=== PATIENT | female | born 1985 | race Two or more races ===

== ENCOUNTER 2016-06-09 06:49 | Emergency (ER) | payer MEDICAID ==
[2016-06-09 08:29] LABS: ABSOLUTE BASOPHILS # (AUTO) 0.1 10^3/uL (0.0-0.2); ABSOLUTE EOSINOPHILS # (AUTO) 0.3 10^3/uL (0.0-0.6); ABSOLUTE LYMPHOCYTES (AUTO) 2.2 10^3/uL (0.5-4.7); ABSOLUTE MONOCYTES (AUTO) 0.6 10^3/uL (0.1-1.4); ABSOLUTE NEUT (AUTO) 6.7 10^3/uL (1.7-8.2); BASOPHILS % (AUTO) 0.6 % (0-2); EOSINOPHILS % (AUTO) 2.6 % (0-6); HEMATOCRIT 40.8 % (36.0-47.0); HEMOGLOBIN 13.3 g/dL (12.0-15.5); HGB HCT DIFFERENCE -0.9; LYMPHOCYTES % (AUTO) 22.7 % (13-45); MEAN CORPUSCULAR HEMOGLOBIN 27.5 pg (27.0-33.4); MEAN CORPUSCULAR HGB CONC 32.6 g/dL (32.0-36.0); MEAN CORPUSCULAR VOLUME 84 fl (80-97); MONOCYTES % (AUTO) 5.7 % (3-13); RED BLOOD COUNT 4.84 10^6/uL (3.72-5.28); RED CELL DISTRIBUTION WIDTH 14.4 % (11.5-14.0); SEGMENTED NEUTROPHILS % (AUTO) 68.4 % (42-78); WHITE BLOOD COUNT 9.8 10^3/uL (4.0-10.5)
[2016-06-09 08:52] LABS: ALANINE AMINOTRANSFERASE 37 U/L (9-52); ALBUMIN 4.6 g/dL (3.5-5.0); ALKALINE PHOSPHATASE 77 U/L (38-126); ANION GAP 14 (5-19); ASPARTATE AMINO TRANSFERASE 21 U/L (14-36); BILIRUBIN,DIRECT 0.1 mg/dL (0.0-0.4); BILIRUBIN,TOTAL 0.3 mg/dL (0.2-1.3); BLOOD UREA NITROGEN 10 mg/dL (7-20); CALCIUM 9.7 mg/dL (8.4-10.2); CARBON DIOXIDE 24 mmol/L (22-30); CHLORIDE 105 mmol/L (98-107); GLUCOSE 94 mg/dL (75-110); POTASSIUM 4.6 mmol/L (3.6-5.0); SODIUM 142.9 mmol/L (137-145); TOTAL PROTEIN 7.7 g/dL (6.3-8.2)
[2016-06-09] MEDS ORDERED: MORPHINE SULFATE 10 MG/ML INJ IV ONE (10:44)
[2016-06-09 10:46] LABS: APPEARANCE,URINE CLEAR; BILIRUBIN,URINE NEGATIVE (NEGATIVE); GLUCOSE, URINE NEGATIVE (NEGATIVE); KETONES,URINE NEGATIVE (NEGATIVE); LEUKOCYTE ESTERASE,URINE NEGATIVE (NEGATIVE); NITRITE,URINE NEGATIVE (NEGATIVE); PROTEIN,URINE NEGATIVE (NEGATIVE); URINE SPECIFIC GRAVITY 1.044; UROBILINOGEN,URINE NEGATIVE mg/dL (<2.0)
--- NOTE | 2016-06-09 12:52 | ER Document Report ---
ED GI/ - General Chief Complaint: Cyst Stated Complaint: BACK PAIN AND LEG NUMBNESS Notes: Patient is a 30 year old female who presents to the ED complaining of pelvic/ rectal pain since Friday. She states it is a dull, constant ache that has prohibited her ability to get comfortable. She states it feels better to stand then to sit. She denies any fever, chills, abdominal pain, n/v/d/c. Last BM was this AM and was normal, she typically goes daily or every other day. She admits that she is concerned it is her pilonidal cyst which she was supposed to have operated on March 2016 but couldnt get time off work. She state she had it drained previously in [place] [facility] office and has been following with them. She has been taking motrin for pain which helps, 200mg BID PRN PMH: as above LMP: currently on it TRAVEL OUTSIDE OF THE [place] IN LAST 30 DAYS: No - Related Data Allergies/Adverse Reactions: aspirin [Aspirin] Allergy (Severe, Verified 06/09/16 06:53) heart burn/throat swelling nickel [Nickel] Allergy (Severe, Verified 06/09/16 06:53) rash/hives red dye [Red Dye] Allergy (Severe, Verified 06/09/16 06:53) heart burn/throat swelling dogs Allergy (Severe, Uncoded 05/09/15 13:07) Anaphylaxis mold Allergy (Severe, Uncoded 05/09/15 13:07) Anaphylaxis aersol Allergy (Intermediate, Uncoded 05/09/15 13:07) Hives flu vaccine Allergy (Unknown, Uncoded 05/09/15 13:07) resulted on allergy skin test Past Medical History - Social History Smoking Status: Never Smoker Chew tobacco use (# tins/day): No Frequency of alcohol use: None Drug Abuse: None Family History: Reviewed & Not Pertinent - Past Medical History Cardiac Medical History: Denies: Hx Heart Attack, Hx Hypertension Pulmonary Medical History: Reports: Hx Asthma Denies: Hx Bronchitis, Hx COPD, Hx Pneumonia Neurological Medical History: Denies: Hx Cerebrovascular Accident, Hx Seizures Renal/ Medical History: Reports: Hx Ovarian Cysts. Denies: Hx Peritoneal Dialysis GI Medical History: Denies: Hx Hepatitis, Hx Hiatal Hernia, Hx Ulcer Musculoskeltal Medical History: Denies Hx Arthritis, Reports Hx Musculoskeletal Trauma Psychiatric Medical History: Reports: Hx Anxiety, Hx Depression Traumatic Medical History: Reports: Hx Fractures Infectious Medical History: Denies: Hx Hepatitis Past Surgical History: Reports: Hx Abdominal Surgery, Hx Section, Hx Orthopedic Surgery - L ankle. Denies: Hx Hysterectomy, Hx Mastectomy, Hx Open Heart Surgery, Hx Pacemaker - Immunizations Immunizations up to date: Yes Hx Diphtheria, Pertussis, Tetanus Vaccination: Yes Review of Systems - Review of Systems Constitutional: No symptoms reported Gastrointestinal: See HPI Genitourinary: See HPI -: Yes All other systems reviewed and negative Physical Exam - Vital signs Vitals: Temp Pulse Resp BP Pulse Ox 97.9 F 92 20 147/84 H 100 06/09/16 06:53 06/09/16 06:53 06/09/16 06:53 06/09/16 06:53 06/09/16 06:53 - Notes Notes: PHYSICAL EXAM GENERAL: Alert, interacts well. HEAD: Normocephalic, atraumatic. EYES: Pupils equal, round, and reactive to light. Extraocular movements intact. ENT: Oral mucosa moist, tongue midline. NECK: Full range of motion. Supple. Trachea midline. LUNGS: Clear to auscultation bilaterally, no wheezes, rales, or rhonchi. No respiratory distress. HEART: Regular rate and rhythm. No murmurs, gallops, or rubs. ABDOMEN: Soft, nondistended, nontender. No guarding, rebound, or rigidity.. Bowel sounds present in all 4 quadrants. FEMALE : Normal external exam. No evidence of lesions, lacerations, bruising or vesicles. Speculum exam normal cervix closed with bleeding. No evidence of vaginal discharge with odor. No evidence of lesions. No vaginal bleeding. Bimanual exam normal no cervical motion tenderness. No adnexal mass, right adnexal tenderness RECTAL: no evidence of abscess, nontender on digital exam, no evidence of bleeding EXTREMITIES: Moves all 4 extremities spontaneously. No edema, radial and dorsalis pedis pulses 2/4 bilaterally. No cyanosis. NEUROLOGICAL: Alert and oriented x4. Normal speech. PSYCH: Normal affect, normal mood. SKIN: Warm, dry, normal turgor. No rashes or lesions noted. Course - Re-evaluation Re-evalutation: 06/09/16 20:12 Patient is a 30-year-old female who is hemodynamically stable, no acute distress and afebrile. CT abdomen and pelvis reveals concern for rate appearing in to see us. On physical exam patient did have evidence of right adnexal tenderness. Transvaginal ultrasound reveals hemorrhagic cyst that is about 2.4 cm. Otherwise, ovaries bilaterally have good blood flow. Will discharge patient home with instruction to follow up with [facility] this week. - Vital Signs Vital signs: Temp Pulse Resp BP Pulse Ox 98.3 F 87 16 134/86 H 99 06/09/16 13:01 06/09/16 13:01 06/09/16 13:01 06/09/16 13:01 06/09/16 13:01 - Laboratory Result Diagrams: 06/09/16 08:15 06/09/16 08:15 Laboratory results interpreted by me: 06/09/16 06/09/16 08:15 10:32 RDW 14.4 H Urine Blood LARGE H - Diagnostic Test Radiology reviewed: Image reviewed, Reports reviewed Discharge - Discharge Clinical Impression: Ovarian cyst, Sciatica Condition: Good Disposition: HOME, SELF-CARE Instructions: Ovarian Cyst ([facility]), Sciatica ([facility]), Acetaminophen, Use of Over- The-Counter Ibuprofen ([facility]), Warm Packs ([facility]), Stretching Exercises for the Back ([facility]) Prescriptions: Ibuprofen [Motrin 800 mg Tablet] 800 mg PO Q8H PRN #30 tab PRN Reason: Forms: Elevated Blood Pressure, Return to Work Referrals: ANUJA LILLY [facility]PER[facility] [Primary Care Provider] - Follow up in 3-5 days
[2016-06-09 13:04] VITALS: BP 134/86
== END 2016-06-09 13:00 | disposition home or self-care (01) ==
LOC: ER 06:49
DX: N83.201 Unspecified ovarian cyst, right side (principal); M54.30 Sciatica, unspecified side; M54.9 Dorsalgia, unspecified; R10.2 Pelvic and perineal pain; J45.909 Unspecified asthma, uncomplicated
CPT/HCPCS: 99284; 96374; 36415; 84703; 85025; 80053; 81001; 76830; 93976; 74177; J2270

== ENCOUNTER 2017-03-01 21:14 | Emergency (ER) | payer MEDICAID ==
[2017-03-02] MEDS ORDERED: SULFAMETHOXAZOLE/TRIMETHOPRIM 800-160 MG TABLET PO ONE (00:27)
[2017-03-02] MEDS ORDERED: CEPHALEXIN 500 MG CAPSULE PO ONE (00:27)
[2017-03-02] MEDS ORDERED: HYDROCODONE/ACETAMINOPHEN 5-325 MG (6 TAB/ER DISP) PO PRN (00:28)
[2017-03-02] MEDS ORDERED: ENOXAPARIN SODIUM INJ 120 MG/0.8 ML DISP.SYRIN SUBCUT ONE (00:28)
--- NOTE | 2017-03-02 00:34 | ER Document Report ---
ED Extremity Problem, Lower - General Chief Complaint: Ankle Swelling Stated Complaint: ANKLE PAIN Time Seen by Provider: 03/02/17 00:07 Notes: Patient is a 31-year-old female who comes emergency department for chief complaint of developing redness and pain in her right leg, she states that about 2 days ago she felt a sharp pain in her leg like she "got stung by something", states that since then she has had developing redness and increasing pain. She also states that she has swelling in her leg, on both sides, states she swells frequently but complains of pain with walking. She denies injury to either leg. She states that she was told that she had a blood clot in the past and was placed on Eliquis but stopped taking the Eliquis because she was not sure she needed it. She denies any shortness of breath, chest pain. She denies any other medical history of this time. TRAVEL OUTSIDE OF THE [place] IN LAST 30 DAYS: No - Related Data Allergies/Adverse Reactions: aspirin [Aspirin] Allergy (Severe, Verified 06/09/16 06:53) heart burn/throat swelling nickel [Nickel] Allergy (Severe, Verified 06/09/16 06:53) rash/hives red dye [Red Dye] Allergy (Severe, Verified 06/09/16 06:53) heart burn/throat swelling dogs Allergy (Severe, Uncoded 05/09/15 13:07) Anaphylaxis mold Allergy (Severe, Uncoded 05/09/15 13:07) Anaphylaxis aersol Allergy (Intermediate, Uncoded 05/09/15 13:07) Hives flu vaccine Allergy (Unknown, Uncoded 05/09/15 13:07) resulted on allergy skin test Past Medical History - General Information source: Patient - Social History Smoking Status: Never Smoker Frequency of alcohol use: None Drug Abuse: None Lives with: Family Family History: Reviewed & Not Pertinent - Past Medical History Cardiac Medical History: Denies: Hx Heart Attack, Hx Hypertension Pulmonary Medical History: Reports: Hx Asthma Denies: Hx Bronchitis, Hx COPD, Hx Pneumonia Neurological Medical History: Denies: Hx Cerebrovascular Accident, Hx Seizures Renal/ Medical History: Reports: Hx Ovarian Cysts. Denies: Hx Peritoneal Dialysis GI Medical History: Denies: Hx Hepatitis, Hx Hiatal Hernia, Hx Ulcer Musculoskeltal Medical History: Denies Hx Arthritis, Reports Hx Musculoskeletal Trauma Psychiatric Medical History: Reports: Hx Anxiety, Hx Depression Traumatic Medical History: Reports: Hx Fractures Infectious Medical History: Denies: Hx Hepatitis Past Surgical History: Reports: Hx Abdominal Surgery, Hx Section, Hx Orthopedic Surgery - L ankle. Denies: Hx Hysterectomy, Hx Mastectomy, Hx Open Heart Surgery, Hx Pacemaker - Immunizations Immunizations up to date: Yes Hx Diphtheria, Pertussis, Tetanus Vaccination: Yes Review of Systems - Review of Systems Constitutional: No symptoms reported EENT: No symptoms reported Cardiovascular: No symptoms reported Respiratory: No symptoms reported Gastrointestinal: No symptoms reported Genitourinary: No symptoms reported Female Genitourinary: No symptoms reported Musculoskeletal: See HPI Skin: See HPI Hematologic/Lymphatic: No symptoms reported Neurological/Psychological: No symptoms reported Physical Exam - Vital signs Vitals: Temp Pulse Resp BP Pulse Ox 98.0 F 85 20 124/89 H 99 03/01/17 21:26 03/01/17 21:26 03/01/17 21:26 03/01/17 21:26 03/01/17 21:26 Interpretation: Normal - General General appearance: Appears well, Alert In distress: None - HEENT Head: Normocephalic, Atraumatic Eyes: Normal Conjunctiva: Normal Extraocular movements intact: Yes Eyelashes: Normal Pupils: PERRL Mouth/Lips: Normal Mucous membranes: Normal Pharynx: Normal Neck: Normal - Respiratory Respiratory status: No respiratory distress Chest status: Nontender Breath sounds: Normal. No: Decreased air movement, Wheezing Chest palpation: Normal - Cardiovascular Rhythm: Regular. No: Tachycardia Heart sounds: Normal auscultation, S1 appreciated, S2 appreciated Murmur: No - Abdominal Inspection: Normal Distension: No distension Bowel sounds: Normal Tenderness: Nontender. No: Tender, Guarding - Back Back: Normal, Nontender. No: Tender - Extremities General upper extremity: Normal inspection, Nontender, Normal strength, Normal temperature General lower extremity: Other - There is mild edema of both distal tibial areas and ankles. Over the right distal tibial area there is a general area of erythema and warmth with increased tenderness. No induration or fluctuance, no streaking away from the site, normal ankle, knee, hip exam. Normal distal neurovascular exam. - Neurological Neuro grossly intact: Yes Cognition: Normal Orientation: AAOx4 [place] Coma Scale Eye Opening: Spontaneous [place] Coma Scale Verbal: Oriented [place] Coma Scale Motor: Obeys Commands Trudy Coma Scale Total: 15 Speech: Normal Motor strength normal: LUE, RUE, LLE, RLE Sensory: Normal - Psychological Associated symptoms: Normal affect, Normal mood - Skin Skin Temperature: Warm Skin Moisture: Dry Skin Color: Normal Course - Re-evaluation Re-evalutation: Patient is difficult to get any history out of, has to be redirected, is vague and does not give any specific details without repeatedly asking. Examination does show erythema and warmth suggesting cellulitis in the right lower extremity above the ankle in the distal tibial area mainly anteriorly. There is mild edema in both legs. No fever, patient is well-appearing, denies history of diabetes, no obvious wounds. No evidence of septic joint. No evidence of necrotizing fasciitis. Mild pain over the area, no pain out of proportion or crepitus. No induration or fluctuance. Treating patient for suspected cellulitis, because she is reportedly off her blood thinner and thinks she had a blood clot in the past she will be scheduled for an ultrasound in morning and given a dose of Lovenox now pending additional workup. Discussed return precautions in between now and then. Patient states satisfaction and agreement with plan and states that she will definitely perform this. - Vital Signs Vital signs: Temp Pulse Resp BP Pulse Ox 97.1 F 79 20 115/54 L 100 03/02/17 01:17 03/02/17 01:17 03/02/17 01:17 03/02/17 01:17 03/02/17 01:17 Discharge - Discharge Clinical Impression: Leg swelling Cellulitis of extremity Qualifiers: Site of cellulitis of extremity: lower extremity Laterality: right Qualified Code(s): L03.115 - Cellulitis of right lower limb Condition: Stable Disposition: HOME, SELF-CARE Additional Instructions: Your examination is consistent with cellulitis of the right lower extremity. Because you are reportedly off the blood thinner with lower extremity swelling there is some concern that he may have a blood clot in your lower extremity as well. Please return in the morning to have the Doppler ultrasound performed with the prescription given tonight. You have been given a dose of Lovenox blood thinner in preparation for this to be performed. Also take the antibiotics as prescribed for the cellulitis. Elevate your legs. Return to emergency department sooner if you develop fever 100.4 or greater, you have spreading redness, no shortness of breath, chest pain, or any other concerning symptoms. Prescriptions: Cephalexin Monohydrate [Keflex 500 mg Capsule] 500 mg PO QID #28 capsule Sulfamethoxazole/Trimethoprim [Bactrim Ds Tablet] 1 each PO BID #14 tablet Forms: Follow-Up Outpatient Testing
[2017-03-02 01:28] VITALS: BP 115/54
== END 2017-03-02 01:17 | disposition home or self-care (01) ==
LOC: ER 21:14
DX: L03.115 Cellulitis of right lower limb (principal); M25.471 Effusion, right ankle; Z88.6 Allergy status to analgesic agent; Z88.7 Allergy status to serum and vaccine
CPT/HCPCS: 99283; 96372; J1650; J3490

== ENCOUNTER 2019-03-22 19:55 | Emergency (ER) | payer MEDICAID ==
--- NOTE | 2019-03-22 20:27 | ER Document Report ---
ED Medical Screen (RME) - General Chief Complaint: Drug Abuse Stated Complaint: WITHDRAWAL,AMS Time Seen by Provider: 03/22/19 20:20 Mode of Arrival: Ambulatory Information source: Patient Notes: 33-year-old female patient to the emergency department with complaints of suicidal attempt. Patient reports she used heroin and Lesley earlier today in an attempt to end her life. Patient reports she has hopeless and has nothing left to live for. Patient reports longstanding history of mental illness, she does state that she is compliant with her medications. She does also state that she hears voices. Denies any homicidal ideations. Patient is very anxious and tearful in triage. I have greeted and performed a rapid initial assessment of this patient. A comprehensive ED assessment and evaluation of the patient, analysis of test results and completion of the medical decision making process will be conducted by additional ED providers. I have specifically instructed the patient or f amily members with the patient to immediately return to any nursing staff should anything change in the patient's condition or with their chief complaint. TRAVEL OUTSIDE OF THE [place] IN LAST 30 DAYS: No - Related Data Allergies/Adverse Reactions: aspirin [Aspirin] Allergy (Severe, Verified 03/22/19 20:15) heart burn/throat swelling nickel [Nickel] Allergy (Severe, Verified 03/22/19 20:15) rash/hives red dye [Red Dye] Allergy (Severe, Verified 03/22/19 20:15) heart burn/throat swelling dogs Allergy (Severe, Uncoded 05/09/15 13:07) Anaphylaxis mold Allergy (Severe, Uncoded 05/09/15 13:07) Anaphylaxis aersol Allergy (Intermediate, Uncoded 05/09/15 13:07) Hives flu vaccine Allergy (Unknown, Uncoded 05/09/15 13:07) resulted on allergy skin test Past Medical History - Social History Drug Abuse: Cocaine, Heroin, Marijuana, Methamphetamine, Prescription drugs - Past Medical History Cardiac Medical History: Denies: Hx Heart Attack, Hx Hypertension Pulmonary Medical History: Reports: Hx Asthma Denies: Hx Bronchitis, Hx COPD, Hx Pneumonia Neurological Medical History: Denies: Hx Cerebrovascular Accident, Hx Seizures Renal/ Medical History: Reports: Hx Ovarian Cysts. Denies: Hx Peritoneal Dialysis GI Medical History: Denies: Hx Hepatitis, Hx Hiatal Hernia, Hx Ulcer Musculoskeltal Medical History: Denies Hx Arthritis, Reports Hx Musculoskeletal Trauma Psychiatric Medical History: Reports: Hx Anxiety, Hx Depression Traumatic Medical History: Reports: Hx Fractures Infectious Medical History: Denies: Hx Hepatitis Past Surgical History: Reports: Hx Abdominal Surgery, Hx Section, Hx Orthopedic Surgery - L ankle. Denies: Hx Hysterectomy, Hx Mastectomy, Hx Open Heart Surgery, Hx Pacemaker - Immunizations Immunizations up to date: Yes Hx Diphtheria, Pertussis, Tetanus Vaccination: Yes
[2019-03-22 21:23] LABS: ABSOLUTE BASOPHILS # (AUTO) 0.1 10^3/uL (0.0-0.2); ABSOLUTE EOSINOPHILS # (AUTO) 0.3 10^3/uL (0.0-0.6); ABSOLUTE LYMPHOCYTES (AUTO) 4.1 10^3/uL (0.5-4.7); ABSOLUTE MONOCYTES (AUTO) 0.7 10^3/uL (0.1-1.4); ABSOLUTE NEUT (AUTO) 3.4 10^3/uL (1.7-8.2); BASOPHILS % (AUTO) 0.6 % (0-2); EOSINOPHILS % (AUTO) 3.7 % (0-6); HEMOGLOBIN 12.2 g/dL (12.0-15.5); LYMPHOCYTES % (AUTO) 47.7 % (13-45); MEAN CORPUSCULAR HEMOGLOBIN 27.5 pg (27.0-33.4); MEAN CORPUSCULAR HGB CONC 33.9 g/dL (32.0-36.0); MEAN CORPUSCULAR VOLUME 81 fl (80-97); MONOCYTES % (AUTO) 8.1 % (3-13); PLATELET COUNT 334 10^3/uL (150-450); RED BLOOD COUNT 4.45 10^6/uL (3.72-5.28); RED CELL DISTRIBUTION WIDTH 16.4 % (11.5-14.0); SEGMENTED NEUTROPHILS % (AUTO) 39.9 % (42-78); TOTAL CELLS COUNTED % (AUTO) 100 %; WHITE BLOOD COUNT 8.6 10^3/uL (4.0-10.5)
[2019-03-22 21:28] LABS: APPEARANCE,URINE CLEAR; BILIRUBIN,URINE NEGATIVE (NEGATIVE); COLOR,URINE YELLOW; GLUCOSE, URINE NEGATIVE (NEGATIVE); KETONES,URINE NEGATIVE (NEGATIVE); LEUKOCYTE ESTERASE,URINE NEGATIVE (NEGATIVE); NITRITE,URINE NEGATIVE (NEGATIVE); PROTEIN,URINE 30 mg/dL (NEGATIVE); URINE SPECIFIC GRAVITY 1.031; UROBILINOGEN,URINE NEGATIVE mg/dL (<2.0)
[2019-03-22 21:39] LABS: ALBUMIN 4.6 g/dL (3.5-5.0); ALKALINE PHOSPHATASE 51 U/L (38-126); ANION GAP 11 (5-19); ASPARTATE AMINO TRANSFERASE 20 U/L (14-36); BILIRUBIN,DIRECT 0.2 mg/dL (0.0-0.4); BILIRUBIN,TOTAL 0.4 mg/dL (0.2-1.3); BLOOD UREA NITROGEN 14 mg/dL (7-20); CALCIUM 9.1 mg/dL (8.4-10.2); CARBON DIOXIDE 29 mmol/L (22-30); CHLORIDE 100 mmol/L (98-107); POTASSIUM 3.9 mmol/L (3.6-5.0); TOTAL PROTEIN 7.8 g/dL (6.3-8.2)
[2019-03-22 21:46] LABS: URINE BARBITURATES SCREEN NEGATIVE; URINE METHADONE SCREEN NEGATIVE; URINE PHENCYCLIDINE SCREEN NEGATIVE
[2019-03-22 21:49] LABS: ACETAMINOPHEN < 10 ug/mL (10-30); ALCOHOL < 10 mg/dL (NONE DETECTED); SALICYLATE < 1.0 mg/dL (2.0-20.0)
[2019-03-22 21:50] LABS: GLUCOSE 64 mg/dL (75-110); URINE BENZODIAZEPINES SCREEN UNCONFIRMED POSITIVE; URINE COCAINE SCREEN UNCONFIRMED POSITIVE
[2019-03-22 21:51] LABS: URINE MARIJUANA (THC) SCREEN UNCONFIRMED POSITIVE
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
--- NOTE | 2019-03-23 07:16 | EKG REPORT ---
SEVERITY:- NORMAL ECG - SINUS RHYTHM : Confirmed by: Dain Hale MD 23-Mar-2019 07:15:43
--- NOTE | 2019-03-23 10:26 | PSYCHOLOGICAL NOTE ---
Psych Note - Psych Note Date seen by psych provider: 03/23/19 Time seen by psych provider: 08:45 Psych Note: Patient is a 33-year-old female who presents to ED via POV accompanied by [facility] for polysubstance use and suicidal ideation. Patient states she called [facility] because she wanted to get help for her substance abuse. Patient states she has been using substances for approximately 5 months in an attempt to self medicate the "voices in my head." Patient states the substances usually "shuts them up." Patient reports detoxes her immediate need. Patient endorses SI, with no plan. Denies command auditory hallucinations. Patient states that she is seen by [facility] for medication management. Patient does not have a mental health provider for mental health services. Patient states she is prescribed Rexulti, lorazepam, and Adderall. Patient reports mental health diagnoses of major depression, schizophrenia, and borderline personality disorder. Patient reports a TBI. Patient identifies her father is a strong support system and has her children age 16 and 10. Patient's drug screen is positive for amphetamines/methamphetamines, benzos, cocaine, and marijuana. Patient was provided psychoeducation regarding substance use disorder. Patient was also provided psychoeducation regarding substance use and TBI. Patient spoke with Isabell at [facility] who secured a bed for patient at [facility] at 12:00. Patient was reminded that the referral to [facility] is a lengthy process and [facility] will be the point of contact for updates. Patient is alert and oriented to person, place, time and circumstance. Mood is normal with congruent affect. Patient endorses suicidal ideation with no plan. Patietn denies homicidal ideation. There is no observed behavior that suggests patient is responding to internal stimuli. Patient is able to engage in organized, rational thought processes. Patient is able to express needs and wants in a logical manner. Patient denies current auditory and visual hallucinations. Eye contact is appropriate. Intellectual ability appears to be within average range. Attention and concentration are good. Insight, judgment and impulse control are currently poor. Impression/Plan: Patient is cleared from acute psychiatric services. Patient endorses suicidal ideation with no plan. Patient denies homicidal ideations. There is no observed behavior that suggests patient is responding to internal stimuli. Patient engaged in organized, rational, linear thought processes and was able to express needs and wants in a logical manner. Patient was provided psychoeducation regarding amphetamines/methamphetamines, benzos, cocaine, and marijuana, and the effects of those substances as it relates to patient's reported TBI. Patient was accepted for voluntary placement at [place]. Plan is to coordinate with [facility] and [facility]. Dr. Ho was consulted on the care and management of this patient; attending physician is in agreement with recommendations and disposition.
[2019-03-23] MEDS ORDERED: NICOTINE 7 MG/24 HR PATCH.TD24 TD ONE (11:28)
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
[2019-03-23 11:45] VITALS: BP 125/84
== END 2019-03-23 12:20 | disposition home or self-care (01) ==
LOC: ER 19:55
DX: R45.851 Suicidal ideations (principal); R44.3 Hallucinations, unspecified; F19.10 Other psychoactive substance abuse, uncomplicated; F17.200 Nicotine dependence, unspecified, uncomplicated; I10 Essential (primary) hypertension; Z88.6 Allergy status to analgesic agent; Z87.820 Personal history of traumatic brain injury
CPT/HCPCS: 93005; 36415; 82962; 80307 ×4; 85025; 80053; 81001; 93010; J3490